=== PATIENT | male | born 1995 | race Caucasian/White ===

== ENCOUNTER 2017-05-09 16:21 | Emergency (ER) | payer OTHER ==
[~2017-05-09] VITALS: Ht 175.3 cm; Wt 56.4 kg
[2017-05-09 16:26] VITALS: BP 106/68
== END 2017-05-09 18:02 | disposition home or self-care (01) ==
LOC: ED 17:56
DX: S63.512A Sprain of carpal joint of left wrist, initial encounter (principal); S00.93XA Contusion of unspecified part of head, initial encounter; V00.131A Fall from skateboard, initial encounter; Y93.51 Activity, roller skating (inline) and skateboarding; Y99.8 Other external cause status; Y92.830 Public park as the place of occurrence of the external cause
CPT/HCPCS: 29125; 99284

== ENCOUNTER 2017-10-14 14:31 | Emergency (ER) | payer OTHER ==
[~2017-10-14] VITALS: Ht 175.3 cm; Wt 55.0 kg
[2017-10-14 14:56] VITALS: BP 97/58
[2017-10-14] MEDS ORDERED: LIDOCAINE 1%, 20ML INFIL ONE (15:30)
[2017-10-14] MEDS ORDERED: ACETAMINOPHEN 500 MG TABLET PO ONE (17:30)
[2017-10-14] MEDS ORDERED: LIDOCAINE 1%, 20ML ONE (17:43)
[2017-10-14 18:05] LABS: HEMATOCRIT 45.2 % (39.2-51.8); HEMOGLOBIN 14.8 g/dL (13.7-18.0); WHITE BLOOD COUNT 18.9 x10^3/uL (4.5-13.2)
[2017-10-14 18:09] LABS: BLOOD UREA NITROGEN 11 mg/dL (7-18)
[2017-10-14 18:12] LABS: DIFF TOTAL CELLS COUNTED 100 CELL DIFF
[2017-10-14 18:30] LABS: VERIFY COUNTS? YES
[2017-10-14] MEDS ORDERED: BACITRACIN ZINC OINT 500U/GM, 0.9 GM ONE (18:51)
== END 2017-10-14 18:57 | disposition home or self-care (01) ==
LOC: ED 17:48
DX: S06.0X9A Concussion with loss of consciousness of unspecified duration, initial encounter (principal); S01.81XA Laceration without foreign body of other part of head, initial encounter; W19.XXXA Unspecified fall, initial encounter; Y93.89 Activity, other specified; Y99.8 Other external cause status; Y92.89 Other specified places as the place of occurrence of the external cause
CPT/HCPCS: 12052; 36415; 70450; 80048; 82040; 85025; 93005; 99285; J3490

== ENCOUNTER 2017-10-21 13:22 | Emergency (ER) | payer OTHER ==
[~2017-10-21] VITALS: Ht 177.8 cm; Wt 55.8 kg
[2017-10-21 13:28] VITALS: BP 128/60
[2017-10-21] MEDS ORDERED: BACITRACIN ZINC OINT 500U/GM, 0.9 GM TP ONE (14:30)
[2017-10-21] MEDS ORDERED: BACITRACIN ZINC OINT 500U/GM, 0.9 GM ONE (14:33)
== END 2017-10-21 14:38 | disposition home or self-care (01) ==
LOC: ED 13:49
DX: S01.81XD Laceration without foreign body of other part of head, subsequent encounter (principal); I73.00 Raynaud's syndrome without gangrene
CPT/HCPCS: 99282